=== PATIENT | female | born 1975 | race Caucasian/White ===

== ENCOUNTER 2018-09-02 10:07 | Emergency (ER) | payer MEDICAID ==
[~2018-09-02] VITALS: Ht 147.3 cm; Wt 77.6 kg
[2018-09-02 10:23] VITALS: Ht 147.3 cm; Wt 77.6 kg
[2018-09-02 13:37] VITALS: BP 126/69
== END 2018-09-02 13:37 | disposition home or self-care (01) ==
LOC: ED 10:07
DX: J34.1 Cyst and mucocele of nose and nasal sinus (principal); Z90.49 Acquired absence of other specified parts of digestive tract
CPT/HCPCS: J1100; J1885